=== PATIENT | female | born 1935 | race Caucasian/White ===

== ENCOUNTER 2016-07-31 06:18 | Emergency (ER) | payer MEDICARE, OTHER ==
[~2016-07-31] VITALS: Ht 157.5 cm; Wt 79.5 kg
[~2016-07-31 06:18] MED LIST: ALBU8.5H3 INH; ATEN50TA PO; CLON1TAB3 PO; FLUO40CA63 PO; LATA2.5D9 BOTH EYES; LOSA100T7 PO; OMEP20CA16 PO; OXYC-183 PO
[2016-07-31 06:22] VITALS: Ht 157.5 cm; Wt 79.5 kg
[2016-07-31] MEDS ORDERED: ALBUTEROL 0.083% (NEB) 2.5 MG/3 ML AMP HHN ONE (07:00)
--- NOTE | 2016-07-31 07:26 | RADRPT ---
PROCEDURE: CR, chest CLINICAL INDICATION: Cough. TECHNIQUE: AP chest. COMPARISON: Chest, 05/18/2013. FINDINGS: The heart is somewhat enlarged. There is no acute infiltrate in the lungs. No pleural effusion. IMPRESSION: 1. Borderline cardiomegaly. RPTAT: GG .Roverto Hartman MD, Date Time Electronically viewed and signed by .Roverto Hartman MD, MD on 07/31/2016 07:25 .Y/
[2016-07-31] MEDS ORDERED: D-ME473S18 PO (07:45)
[2016-07-31] MEDS ORDERED: ALBU8.5H3 INH (07:45)
--- NOTE | 2016-07-31 09:06 | ERD ---
DATE OF SERVICE: HISTORY OF PRESENT ILLNESS: The patient is a 80-year-old female coming in complaining of a cough fo r the last 10 days. The patient states that she has had a dry cough with mild shortness of breath, decreased appetite. She has had 1 episode of posttussive vomiting earlier today. She denies fevers . She has been taking levofloxacin for the last 5 days. Denies any leg swelling. Has never had a history of CHF or asthma in the past. Has had a history of pneumonia. Denies any cardiac chest kimberley n or radiating chest pain. PAST MEDICAL HISTORY: Hypertension and glaucoma. ALLERGIES: PENICILLIN. SURGICAL HISTORY: Denies. SOCIAL HISTORY: Denies. REVIEW OF SYSTEMS: A 12-point review of systems was done. Refer to HPI for positives, all other sy stems negative. PHYSICAL EXAMINATION: VITAL SIGNS: Temperature is 98.2, pulse is 60, blood pressure is 137/72, respiratory rate 20, O2 sa t 96% on room air. Pain intensity is 0/10. GENERAL: The patient is well-appearing, well-nourished, no acute distress. HEART: Regular rate and rhythm. No murmurs, clicks, rubs or gallops. No S3 or S4. CHEST: Clear to auscultation bilaterally. There are no rales, wheezes or rhonchi. HEENT: Atraumatic. Conjunctivae are pink. Pupils equal, round, and reactive to light. There is no s cleral icterus. Tympanic membranes clear bilaterally. Oropharynx clear. No nystagmus or photophobia . ABDOMEN: Soft, nontender and nondistended. Good bowel sounds. No rebound or guarding. No gross khari tonitis. No gross organomegaly or masses. No Ospina sign or McBurney point tenderness. EXTREMITIES: Equal pulses bilaterally. There is no peripheral clubbing, cyanosis or edema. No focal swelling or erythema. Full range of motion. Grossly neurovascularly intact. No leg swelling noted to the bilateral lower extremities. SKIN: There is no apparent rash or petechia. The skin is warm and dry. EMERGENCY ROOM COURSE: The patient had a 1-view chest x-ray done in the ER which showed borderline cardiomegaly, no infiltrates. The patient also received a breathing treatment of albuterol. Upon r eevaluation, the patient's symptoms had improved, and she states she was feeling better. DIAGNOSIS: Cough. MEDICAL DECISION MAKING: I have low suspicion for pneumonia, low suspicion for CHF, low suspicion f or PE, low suspicion for other cardiac or pulmonary abnormalities. The patient likely has a viral p neumonia, and she has been treated with antibiotics. I did not feel there was indication for a leblanc ge in antibiotics. DISCHARGE: The patient is discharged stable. The patient is given a prescription for Phenergan DM and albuterol and told to follow up with primary care within 1 to 2 days for reevaluation. The allison ent was told if symptoms progress or change, to return to the ER. All other questions answered at t andrade of discharge. Discharge summary given at the time of departure. The patient understood and com plied with plan. Dictated By: HANNAH GAFFNEY for LETI HUBBARD/AMI Conf#: [id number] DID#: [id number]
== END 2016-07-31 08:24 | disposition home or self-care (01) ==
LOC: FTE 06:18
DX: R05 Cough (principal); I10 Essential (primary) hypertension
CPT/HCPCS: 71010; 94664